=== PATIENT | male | born 1960 | race Caucasian/White ===

== ENCOUNTER → 2017-04-02 | Outpatient (CLI) | payer BC ==
[2014-12-06 10:50] VITALS: BP 166/90
[~2017-04-02] MED LIST: NS 100 ML IV 100 ML IV ONE
[2017-04-02 14:04] LABS: CREATININE 0.79 mg/dL (0.70-1.30)
--- NOTE | 2017-04-02 14:59 | CT ---
CT abdomen and pelvis with contrast Indication: Hematuria with right lower quadrant pain Comparison: 08/12/2016 Technique: Multiple axial images of the abdomen and pelvis were obtained from the lung bases to the pubic symph ysis after the administration of IV contrast. Coronal and sagittal reformatted images were also pro vided. Radiation dose reduction techniques were performed utilizing adjustment for MA/kVP based on patient body size. Findings: The lung bases are clear. There is a small round hypoattenuating lesion within the hepatic dome unch anged from prior exam, likely representing a cyst. No other hepatic lesion identified. The gallbladd er, bile ducts, spleen, pancreas and adrenal glands are normal. Neither kidney demonstrates evidence of nephrolithiasis, hydronephrosis or mass. There is a small cyst within the lower pole the right k idney. Upper GI tract iswithout evidence of mass or obstruction. Urinary bladder is mildly thick-wal led. Prostate gland is enlarged with central dystrophic calcifications. The rectum and colon are unr emarkable aside for scattered diverticula no pelvic free fluid or adenopathy. Abdominal aorta is nor mal in caliber with scattered calcified atherosclerotic disease. Abdominal aorta is normal in calibe r. No acute osseous abnormality. IMPRESSION: 1. Mildly thick-walled bladder is indeterminate, clinical and neural loss is correlation is recommen ded to exclude acute interstitial cystitis. 2. Prostate gland enlargement, correlation with patient's symptoms and PSA levels is recommended. Th is may be a source of hematuria. 3. Incidental findings as described above. Reported By:
== END ==
LOC: RAD 11:03
PROVIDERS: ATTEND Nurse Practitioner Family
DX: R31.0 Gross hematuria (principal); R10.31 Right lower quadrant pain; R10.11 Right upper quadrant pain; N28.1 Cyst of kidney, acquired
CPT/HCPCS: 36415; 74177; 82565; 84520; A4222